=== PATIENT | female | born 1975 | race Caucasian/White ===

== ENCOUNTER 2017-03-06 12:46 | Emergency (ER) | payer MEDICAID ==
[~2017-03-06] VITALS: Wt 110.0 kg
[2017-03-06] MEDS ORDERED: MECL-77 PO (13:39)
--- NOTE | 2017-03-06 13:52 | ERD ---
ER Documentation Chief Complaint Date/Time DATE: 03/06/17 TIME: 13:50 Chief Complaint NAUSEA ITH VOMITING HPI An bilingual interpreter has been used. This is a 41-year-old female who presents to the emergency room with 3-4 days of room spinning sensation. She describes room spinning sensation that is sudden onset and worse with head movement with associated nausea, 1-2 episodes of nonbloody nonbilious emesis. No headache no slurred speech no ataxia no motor weakness. She denies any fevers or chills or chest pain or abdominal pain. She recently finished her period, no history of anemia. ROS All systems reviewed and are negative except as per history of present illness. Medications Home Meds Active Scripts Meclizine Hcl* (Meclizine Hcl*) 25 Mg Tablet, 25 MG PO Q8H Y for DIZZINESS, #30 TAB Prov:BRENTON ARNOLD MD 03/06/17 Allergies Allergies: Coded Allergies: No Known Allergies (Verified Allergy, Unknown, 07/30/10) PMhx/Soc Hx Alcohol Use: No Hx Substance Use: No Hx Tobacco Use: No Smoking Status: Never smoker FmHx Family History: No diabetes Physical Exam Vitals Vital Signs Date Time Temp Pulse Resp B/P Pulse Ox O2 Delivery O2 Flow Rate FiO2 03/06/17 12:49 98.0 83 18 152/72 99 Physical Exam General: Well developed, well nourished, no acute distress Head: Normocephalic, atraumatic. Eyes: Pupils equally reactive, EOM intact ENT: Moist mucous membranes Neck: Supple, no lymphadenopathy Respiratory: Lungs clear bilaterally, no distress Cardiovascular: RRR, no murmurs, rubs, or gallops Abdominal: Soft, non-tender, non-distended, no peritoneal signs : Deferred MSK: No edema, no unilateral swelling, 5/5 strength Neurologic: Alert and oriented, moving all extremities, normal speech, no focal weakness, no cerebellar signs, normal rapid alternating movements, steady gait, no ataxia, reproducible vertigo with head movements. No significant nystagmus Skin: No rash Psych: Normal mood Results 24 hrs Current Medications Medications (Trade) Dose Ordered Sig/Brody Route PRN Reason Start Time Stop Time Status Last Admin Dose Admin Meclizine HCl (Antivert) 25 mg ONCE ONCE PO 03/06/17 14:00 03/06/17 14:01 03/06/17 13:40 Procedures/MDM The patient's presentation is very consistent with acute benign positional vertigo. She has very reproducible symptoms. She exhibits no signs or symptoms concerning for central process such as stroke or vertebrobasilar insufficiency. No chest pain or exertional symptoms to suggest arrhythmia or cardiac etiology. I recommended testing but she states that she just finished her period and does not have a risk of . The patient was given meclizine in the emergency room and continues to be well-appearing and steady on her feet. I believe she is safe for discharge with close outpatient follow-up. She was advised if symptoms do not improve in 1 week outpatient neurology follow-up may be required. The patient verbalized understanding and will be discharged from the emergency room. We discussed follow up with the patient's primary care doctor within 24 to 48 hours as needed. We also discussed return to the emergency room for worsening symptoms or worsening condition. Outpatient referral: [None required] Discharge Medications: Meclizine Departure Diagnosis: Primary Impression: BPV (benign positional vertigo) Laterality: unspecified laterality Qualified Code: H81.10 - BPV (benign positional vertigo), unspecified laterality Condition: Stable Patient Instructions: Benign Positional Vertigo Referrals[facility] Usted se brooke hecho un examen mdico de control que le indica que no est en misty condicin que requiera tratamiento urgente en el Departamento de Emergencia. Un estudio ms profundo y el tratamiento de love condicin pueden esperar sin ningn riesgo hasta que usted sea atendida/o en el consultorio de love mdico o misty cl elizabeth. Es responsabilidad suya arreglar misty quita para el seguimiento del gregorio. MANEJO DE CONDICIONES NO URGENTES EN EL FUTURO 1) Si usted tiene un mdico de atencin primaria: Usted debera llamar a love mdico de atencin primaria antes de venir al departamento de emergencia. Despus de las horas de consultorio, love doctor o love asociado/a est disponible por telfono. El mdico o enfermero de chico en el servicio telefnico puede asesorarle por jodi medio para atender el problema, o gregorio contrario se puede programar misty quita. 2) Si usted no tiene un mdico de atencin primaria: Llame al mdico o clnica de referencia que aparece abajo pito las horas de consultorio para hacer misty quita para que le vean. CLINICAS: [facility] [phone] [facility] [phone] [facility] [phone] [place] [address] [phone] [facility] [phone] [facility] [phone] [address] [facility]. [facility] () Usted se brooke hecho un examen mdico de control que le indica que no est en misty condicin que requiera tratamiento urgente en el Departamento de Emergencia. Un estudio ms profundo y el tratamiento de love condicin pueden esperar sin ningn riesgo hasta que usted sea atendida/o en el consultorio de love mdico o misty cl elizabeth. Es responsabilidad suya arreglar misty quita para el seguimiento del gregorio. MANEJO DE CONDICIONES NO URGENTES EN EL FUTURO 1) Si usted tiene un mdico de atencin primaria: Usted debera llamar a love mdico de atencin primaria antes de venir al departamento de emergencia. Despus de las horas de consultorio, love doctor o love asociado/a est disponible por telfono. El mdico o enfermero de chico en el servicio telefnico puede asesorarle por jodi medio para atender el problema, o gregorio contrario se puede programar misty quita. 2) Si usted no tiene un mdico de atencin primaria: Llame al mdico o condado institucions de referencia que aparece abajo pito las horas de consultorio para hacer misty quita para que le vean. SI USTED NO PUEDE PAGAR PARA TASIA UN MEDICO puede ir a: [facility] [address] [place] [address] [facility] [address] [place] [address] [facility] [address] [place] [address] [facility] [facility] [address] [place], [place] [id number] Additional Instructions: Llame al doctor nombrado abajo (Referral Sources) MAANA y dori misty QUITA PARA DENTRO DE MISTY SEMANA. Dgale a la secretaria que nosotros le instruimos hacer esta quita.Avise o llame si love condicin se empeora antes de la quita. BRENTON ARNOLD MD Mar 06, 2017 13:52
[2017-03-06] MEDS ORDERED: MECLIZINE 12.5 MG TAB PO ONE (14:00)
== END 2017-03-06 13:53 | disposition home or self-care (01) ==
LOC: FTE 12:46
DX: H81.10 Benign paroxysmal vertigo, unspecified ear (principal)
CPT/HCPCS: Z7502; Z7610; 99283

== ENCOUNTER 2017-05-27 10:22 | Emergency (ER) | payer MEDICAID ==
[~2017-05-27] VITALS: Ht 160 cm; Wt 123.5 kg
[~2017-05-27 10:22] MED LIST: MECL-77 PO
[2017-05-27 10:28] VITALS: Ht 160 cm; Wt 123.5 kg
[2017-05-27] MEDS ORDERED: IBUP-1542 PO (13:09)
--- NOTE | 2017-05-27 13:13 | RADRPT ---
PROCEDURE: CT Brain without. CLINICAL INDICATION: Headache TECHNIQUE: A CT of the brain was performed on a multi-slice CT scanner utilizing axial sections fr om the skull base through the vertex without contrast. Coronal and sagittal reconstructed images w ere provided. One or more of the following does reduction techniques were used: Automated exposure control; adjustment of the mA and/or kV according to patient size; use of the aorta of reconstructi on technique. Images were reviewed on a high-resolution PACS workstation. The exam CTDI = 44.26 mGy . The exam DLP = 720.23 mGy-cm. COMPARISON: None available FINDINGS: The ventricles and sulci are symmetric and normal in size and morphology. There is no evidence of i ntracranial hemorrhage, mass effect, edema or midline shift. No abnormal intra-axial or extra-axial fluid collections are seen. The posey/white matter differentiation is well preserved. There is mild bilateral sphenoid sinus disease. the paranasal sinuses are otherwise clear. The mast oid air cells are clear. The surrounding soft tissue scalp and bony calvarium are intact and normal. IMPRESSION: 1. Unremarkable CT brain. RPTAT: KK .Calos Amaya MD, Date Time Electronically viewed and signed by .Calos Amaya MD, MD on 05/27/2017 13:13 .B/
[2017-05-27] MEDS ORDERED: KETOROLAC 30 MG INJ IM STA (13:22)
--- NOTE | 2017-05-27 13:41 | ERD ---
ER Documentation Chief Complaint Date/Time DATE: 05/27/17 TIME: 13:38 Chief Complaint RIGHT SIDE OF HEAD PAIN X 3 DAYS.NO NEURO DEFICIT NOTED HPI Patient is a 41-year-old female who presents to the emergency department for concerns of a right-sided headache 3 days. Patient states the pain is in her right occipital region and radiating down her neck. Patient describes the pain to be a 7 out of 10. Patient states that the pain is episodic in nature. Patient denies any nausea, vomiting, phonophobia or photophobia. Patient denies any recent falls or trauma. Patient denies any fevers, chills, neck pain , neck stiffness, blurry vision or LOC. Patient does report pain in patient denies any chest pain, shortness breath, left upper extremity pain or LOC. Patient states she has been taking Excedrin with minimal alleviation of symptoms. ROS All systems reviewed and are negative except as per history of present illness. Medications Home Meds Active Scripts Ibuprofen* (Motrin*) 600 Mg Tab, 600 MG PO Q6, #30 TAB Prov:NURY VALLADARES PA-C 05/27/17 Meclizine Hcl* (Meclizine Hcl*) 25 Mg Tablet, 25 MG PO Q8H Y for DIZZINESS, #30 TAB Prov:BRENTON ARNOLD MD 03/06/17 Allergies Allergies: Coded Allergies: No Known Allergies (Verified Allergy, Unknown, 07/30/10) PMhx/Soc Medical and Surgical Hx: pt denies Medical Hx History of Surgery: Yes (c-sectionx3) Anesthesia Reaction: No Hx Alcohol Use: No Hx Substance Use: No Hx Tobacco Use: No Smoking Status: Never smoker Physical Exam Vitals Vital Signs Date Time Temp Pulse Resp B/P Pulse Ox O2 Delivery O2 Flow Rate FiO2 05/27/17 10:28 99.5 88 18 162/92 99 Physical Exam GENERAL: Well-developed, well-nourished female. Appears in no acute distress. Speaking in full sentences HEAD: Normocephalic, atraumatic. No deformities or ecchymosis. EYE: Pupils equal, round, and reactive to light. EOMs intact. No conjunctival erythema. No eye discharge. ENT: External ear without any masses or tenderness. Auditory canals clear bilaterally. TM visualized bilaterally, non-erythematous, non-bulging. Nasal mucosa pink with no discharge. Oropharynx is pink without any tonsillar erythema or exudates. No uvula deviation. No kissing tonsils. NECK: Supple. No meningismus. Normal ROM of the neck. No cervical midline tenderness. Tender to palpation of the R trapezius muscles. LUNG: Clear to auscultation bilaterally. No rhonchi, wheezing, rales or coarse breath sounds. HEART: Regular rate and rhythm. No murmurs, rubs or gallops. BACK: No midline tenderness. EXTREMITIES: Equal pulses bilaterally. No peripheral clubbing, cyanosis or edema. No unilateral leg swelling. NEUROLOGIC: Alert and oriented x3, cooperative. Mood and affect appropriate to situation. Cranial nerves II through XII are grossly intact. Normal speech. Motor exam: 5/5 strength in upper and lower extremities. Sensory exam: Sensation intact to light touch on all four extremities. Cerebellar function exam: No dysmetria on wiqwap-wa-ilef test. Steady gait. No pronator drift. Negative Brudzinski sign. Negative Kernig sign. SKIN: Normal color. Warm and dry. No rashes or lesions. Results 24 hrs Current Medications Medications (Trade) Dose Ordered Sig/Brody Route PRN Reason Start Time Stop Time Status Last Admin Dose Admin Ketorolac Tromethamine (Toradol) 30 mg ONCE STAT IM 05/27/17 13:22 05/27/17 13:24 DC 05/27/17 13:39 Procedures/MDM ED COURSE: The patient was stable throughout ED course. I kept the patient and/or family informed of laboratory and diagnostic imaging results throughout the ED course. DIAGNOSTIC IMAGING: Read by radiologist. Patient: DAVID SALVADOR : 1975 Age: 41 Sex: F [id number] DOS: 05/27/17 1217 Ordering MD: NURY VALLADARES PA-C Location: FTE Room/Bed: PROCEDURE: CT Brain without. CLINICAL INDICATION: Headache TECHNIQUE: A CT of the brain was performed on a multi-slice CT scanner utilizing axial sections from the skull base through the vertex without contrast. Coronal and sagittal reconstructed images were provided. One or more of the following does reduction techniques were used: Automated exposure control; adjustment of the mA and/or kV according to patient size; use of the aorta of reconstruction technique. Images were reviewed on a high-resolution PACS workstation. The exam CTDI = 44.26 mGy. The exam DLP = 720.23 mGy-cm. COMPARISON: None available FINDINGS: The ventricles and sulci are symmetric and normal in size and morphology. There is no evidence of intracranial hemorrhage, mass effect, edema or midline shift. No abnormal intra-axial or extra-axial fluid collections are seen. The posey/white matter differentiation is well preserved. There is mild bilateral sphenoid sinus disease. the paranasal sinuses are otherwise clear. The mastoid air cells are clear. The surrounding soft tissue scalp and bony calvarium are intact and normal. IMPRESSION: 1. Unremarkable CT brain. RPTAT: KK .Calos Amaya MD, Date Time Electronically viewed and signed by .Calos Amaya MD, MD on 2016 13:13 .B/ CC: NURY VALLADARES PA-C MEDICATIONS GIVEN: Toradol IM after negative CT scan was obtained. Patient tolerated medication well with no adverse reactions. Patient reported improvement in pain. MEDICAL DECISION MAKING. Patient is a 41-year-old female presents emergency department for concerns of right sided headache 3 days. Vital signs were reviewed. Patient was afebrile. Patient is not hypoxic. Patient reported minimal alleviation in pain with Excedrin. Patient denied any fevers, neck stiffness, visual changes or LOC. Full neurological exam was normal. CT brain was obtained. CT brain was negative. Patient was given Toradol after negative CT was obtained. Patient reported improvement in pain. Given these findings, patient presentation was most consistent with tension headache.Low suspicion for intracranial hemorrhage , meningitis, encephalitis, intracranial mass, glaucoma, preeclampsia, sinusitis , migraine headache, cluster headache. PRESCRIPTIONS: Ibuprofen DISCHARGE: At this time, patient is stable for discharge and outpatient management.She was given a copy of all imaging studies obtained today. I have encouraged the patient to hydrate well. I have instructed the patient to follow-up with his/ her primary care physician in 1-2 days. If symptoms persist, patient may need to see a specialist for further examinations and testing. I have instructed the patient to promptly return to the ER at any time for any new or worsening symptoms including increased increased pain, fever, nausea, vomiting, numbness, neck stiffness, visual changes, weakness or LOC. The patient and/or family expressed understanding of and agreement with this plan. All questions were answered. Home care instructions were provided. Patients blood pressure was elevated (>120/80) but appears stable without evidence of hypertensive emergency, hypertensive urgency or end-organ failure. I had discussion with the patient about the risks of hypertension. I have advised the patient to follow up with his/her primary care physician for outpatient monitoring and treatment for hypertension in 2-3 days. I have instructed the patient to return to the ER for any new or worsening symptoms including chest pain, shortness of breath, headache, blurred vision, confusion, nausea, vomiting or LOC. Departure Diagnosis: Primary Impression: Headache Headache type: unspecified Headache chronicity pattern: acute headache Intractability: not intractable Qualified Code: R51 - Acute nonintractable headache, unspecified headache type Condition: Stable Patient Instructions: Self-Care for Headaches Referrals: [facility] YOU HAVE RECEIVED A MEDICAL SCREENING EXAM AND THE RESULTS INDICATE THAT YOU DO NOT HAVE A CONDITION THAT REQUIRES URGENT TREATMENT IN THE EMERGENCY DEPARTMENT. FURTHER EVALUATION AND TREATMENT OF YOUR CONDITION CAN WAIT UNTIL YOU ARE SEEN IN YOUR DOCTORS OFFICE WITHIN THE NEXT 1-2 DAYS. IT IS YOUR RESPONSIBILITY TO MAKE AN APPOINTMENT FOR FOLOW-UP CARE. IF YOU HAVE A PRIMARY DOCTOR --you should call your primary doctor and schedule an appointment IF YOU DO NOT HAVE A PRIMARY DOCTOR YOU CAN CALL OUR PHYSICIAN REFERRAL HOTLINE AT IF YOU CAN NOT AFFORD TO SEE A PHYSICIAN YOU CAN CHOSE FROM THE FOLLOWING [facility] [address] [facility]. [facility] [address] [facility] [address] [facility] [address] [facility]. [facility] [address] [facility] [facility]. [address] [facility]. [facility] YOU HAVE RECEIVED A MEDICAL SCREENING EXAM AND THE RESULTS INDICATE THAT YOU DO NOT HAVE A CONDITION THAT REQUIRES URGENT TREATMENT IN THE EMERGENCY DEPARTMENT. FURTHER EVALUATION AND TREATMENT OF YOUR CONDITION CAN WAIT UNTIL YOU ARE SEEN IN YOUR DOCTORS OFFICE WITHIN THE NEXT 1-2 DAYS. IT IS YOUR RESPONSIBILITY TO MAKE AN APPOINTMENT FOR FOLOW-UP CARE. IF YOU HAVE A PRIMARY DOCTOR --you should call your primary doctor and schedule and appointment IF YOU DO NOT HAVE A PRIMARY DOCTOR YOU CAN CALL OUR PHYSICIAN REFERRAL HOTLINE AT . IF YOU CAN NOT AFFORD TO SEE A PHYSICIAN YOU CAN CHOSE FROM THE FOLLOWING [facility] INSTITUTIONS: [facility] [address] [place] [address] [facility] [address] [place] [address] [facility] [address] [place] [address] Additional Instructions: Call your primary care doctor TOMORROW for an appointment during the next 1-2 days.See the doctor sooner or return here if your condition worsens before your appointment time. NURY VALLADARES PA-C May 27, 2017 13:41
== END 2017-05-27 13:47 | disposition home or self-care (01) ==
LOC: FTE 10:22
DX: R51 Headache (principal)
CPT/HCPCS: 70450; 96372; J1885; Z7502

== ENCOUNTER 2017-05-31 09:50 | Emergency (ER) | payer MEDICAID ==
[~2017-05-31] VITALS: Ht 167.6 cm; Wt 121.0 kg
[~2017-05-31 09:50] MED LIST changes: +IBUP-1542 PO
[2017-05-31 09:54] VITALS: Ht 167.6 cm; Wt 121.0 kg
[2017-05-31] MEDS ORDERED: HYDROCODONE/APAP (5/325) TAB PO ONE (11:00)
[2017-05-31] MEDS ORDERED: IBUP-1542 PO (11:19)
[2017-05-31] MEDS ORDERED: HYDR-906 PO (11:19)
[2017-05-31 11:43] VITALS: BP 141/82; PULSE 66; RESP 16
--- NOTE | 2017-05-31 12:17 | ERD ---
ER Documentation Chief Complaint Date/Time DATE: 05/31/17 TIME: 12:15 Chief Complaint CORTES X8 DAYS HPI 41-year-old female presents with a burning unilateral right-sided headache that has been constant over the last 8 days. Patient's previous visit was a few days ago she had a CT scan of brain that was unremarkable. She describes linear pain on the lateral aspect of the right side, it is burning, and not improving with ibuprofen. She denies any injuries, has no vomiting or blurry vision. ROS All systems reviewed and are negative except as per history of present illness. Medications Home Meds Active Scripts Ibuprofen* (Motrin*) 600 Mg Tab, 600 MG PO Q6, #30 TAB Prov:MARGOTH SWANSON PA-C 05/31/17 Hydrocodone/Acetaminophen (Laporte 5-325 Tablet) 1 Each Tablet, 1 TAB PO Q6H Y for PAIN, #10 TAB Prov:MARGOTH SWANSON PA-C 05/31/17 Ibuprofen* (Motrin*) 600 Mg Tab, 600 MG PO Q6, #30 TAB Prov:NURY VALLADARES PA-C 05/27/17 Meclizine Hcl* (Meclizine Hcl*) 25 Mg Tablet, 25 MG PO Q8H Y for DIZZINESS, #30 TAB Prov:BRENTON ARNOLD MD 03/06/17 Allergies Allergies: Coded Allergies: No Known Allergies (Verified Allergy, Unknown, 07/30/10) PMhx/Soc Medical and Surgical Hx: pt denies Medical Hx, pt denies Surgical Hx History of Surgery: Yes (c-sectionx3) Anesthesia Reaction: No Hx Alcohol Use: No Hx Substance Use: No Hx Tobacco Use: No Smoking Status: Never smoker Physical Exam Vitals Vital Signs Date Time Temp Pulse Resp B/P Pulse Ox O2 Delivery O2 Flow Rate FiO2 05/31/17 11:43 66 16 141/82 99 Room Air 05/31/17 09:54 98.9 73 20 177/79 99 Physical Exam General: Well-developed, well-nourished. The patient appears in no acute distress. HEENT: Head is normocephalic, atraumatic. No scleral icterus. Pupils are equal , round, and reactive. Oral mucous membranes are moist. No pharyngeal erythema. Neck: Supple. Nontender. Lungs: Clear to auscultation. Normal air movement. Heart: Regular rate and rhythm. S1 and S2 are normal. No murmurs, gallops, or rubs. Abdomen: Soft, nontender, nondistended. Bowel sounds are normoactive. Extremities: No clubbing or cyanosis. Normal pulses. Moving extremities x 4. No weakness. Neurologic: Alert and oriented 3. No focal deficits. Patient speech and gait normal. Skin: Normal turgor. No rash or lesions. Results 24 hrs Current Medications Medications (Trade) Dose Ordered Sig/Brody Route PRN Reason Start Time Stop Time Status Last Admin Dose Admin Acetaminophen/ Hydrocodone Bitart (Laporte (5/325)) 1 tab ONCE ONCE PO 05/31/17 11:00 05/31/17 11:01 DC 05/31/17 11:33 Procedures/MDM 41-year-old female presents with a right sided headache, patient's scalp is unremarkable, and her headache appears to be reproduced with palpation and appears to be neuropathic. Intracranial process, including subarachnoid hemorrhage, other intracranial hemorrhages, TIA, stroke, temporal arteritis. Patient's skin examination is unremarkable, and given her length of headache 1 week believe the patient's symptoms I may be treated with pain medication. I considered patient starting antivirals to treat for shingles based on the burning linear unilateral pain, however has been ongoing a week now and her pain has not worsened, she does not show signs of systemic infection. Departure Diagnosis: Primary Impression: Headache Condition: Good Patient Instructions: Self-Care for Headaches Additional Instructions: Llame al doctor BRENNAN y dori misty QUITA PARA DENTRO DE 1-2 FOSTER.Dgale a la secretaria que nosotros le instruimos hacer esta quita.Avise o llame si love condicin se empeora antes de la quita. Regresa aqui si peor o no mejor. MARGOTH SWANSON PA-C May 31, 2017 12:17
== END 2017-05-31 11:44 | disposition home or self-care (01) ==
LOC: FTE 09:50
DX: R51 Headache (principal)
CPT/HCPCS: Z7502; Z7610; 99283